=== PATIENT | male | born 1955 | race Hispanic/Latino ===

== ENCOUNTER 2018-07-25 09:49 | Inpatient (IN) | payer OTHER ==
[2018-07-25 09:51] VITALS: BMI 22.6
[2018-07-25] MEDS ORDERED: Sodium Chloride 0.9% 500 ML IV STA (10:55)
[2018-07-25] MEDS ORDERED: Moxifloxacin IV 400mg/250ml NS 400 MG/250 ML BAG IV STA (10:55)
[2018-07-25] MEDS ORDERED: Moxifloxacin IV 400mg/250ml NS 400 MG/250 ML BAG IVPB ONE (12:11)
[2018-07-25] MEDS ORDERED: Sodium Chloride 0.9% 1,000 ML ONE (12:11)
--- NOTE | 2018-07-25 13:01 | C.PDOC ---
History Of Present Illness 63 years old male is sent to ED for evaluation of pneumonia. Patient states he was seen by David Helms (PMD) which sent him to Dr. malik bower for evaluation and CT Scans. Patient states he was told he has pneumonia and something suspicious for cancer, so Dr. Lancaster sent patient to ER today. Patient has no complaints at this time. Chief Complaint (Nursing): Medical Clearance History Per: Patient History/Exam Limitations: no limitations Onset/Duration Of Symptoms: Hrs Current Symptoms Are (Timing): Still Present Recent travel outside of the [place]: No Past Medical History Reviewed: Historical Data, Nursing Documentation, Vital Signs Vital Signs: Last Vital Signs Temp 97.6 F 07/25/18 09:57 Pulse 69 07/25/18 09:57 Resp 18 07/25/18 09:57 BP 131/67 07/25/18 09:57 Pulse Ox 96 07/25/18 09:57 - Medical History PMH: Bipolar Disorder Surgical History: No Surg Hx Family History: States: Unknown Family Hx - Social History Hx Alcohol Use: No Hx Substance Use: No - Immunization History Hx Tetanus Toxoid Vaccination: No Hx Influenza Vaccination: Yes Hx Pneumococcal Vaccination: No Review Of Systems Constitutional: Negative for: Fever, Chills Gastrointestinal: Negative for: Nausea, Vomiting, Abdominal Pain, Diarrhea Skin: Negative for: Rash Neurological: Negative for: Weakness, Numbness Physical Exam - Physical Exam Appears: Non-toxic, No Acute Distress Skin: Normal Color, Warm, Dry, No Rash Head: Atraumatic, Normacephalic Eye(s): bilateral: Normal Inspection, PERRL, EOMI Oral Mucosa: Moist Neck: Normal ROM, Supple Chest: Symmetrical, No Tenderness Cardiovascular: Rhythm Regular, No Murmur Respiratory: Normal Breath Sounds, No Rales, No Rhonchi, No Wheezing Gastrointestinal/Abdominal: Soft, No Tenderness Extremity: Normal ROM Extremity: Bilateral: Atraumatic, Normal Color And Temperature, Normal ROM Pulses: Left Radial: Normal, Right Radial: Normal Neurological/Psych: Oriented x3, Normal Speech Gait: Steady ED Course And Treatment O2 Sat by Pulse Oximetry: 96 (RA) Pulse Ox Interpretation: Normal Progress Note: Administered Moxiflocacin, IV Fluids, and O2 via nasal cannula. Ordered blood work and blood culture. Spoke with Dr. Hernandez which requested patient to be started on antibiotics and IV. Patient will be admitted to his service with Dr. Bower's consult. Disposition - Disposition Disposition: HOSPITALIZED Disposition Time: 12:29 Condition: STABLE Forms: [facility] (Maltese) - Clinical Impression Clinical Impression: Pneumonia, Pulmonary mass - PA / BEAM WARPER / Resident Statement MD/DO has reviewed & agrees with the documentation as recorded. - Scribe Statement The provider has reviewed the documentation as recorded by the Caitlinibe Veronika Goss All medical record entries made by the Scribe were at my direction and personally dictated by me. I have reviewed the chart and agree that the record accurately reflects my personal performance of the history, physical exam, medical decision making, and the department course for this patient. I have also personally directed, reviewed, and agree with the discharge instructions and disposition. Decision To Admit - Pt Status Changed To: Hospital Disposition Of: Inpatient - Admit Certification Admit to Inpatient:: After my assessment, the patient will require hospitalization for at least two midnights. This is because of the severity of symptoms shown, intensity of services needed, and/or the medical risk in this patient being treated as an outpatient. - InPatient: Physician Admission Certification: I certify that this patient requires 2 or more midnights of care for the following reason:: nends a work up for pulmonary mass plus pneumonia - . Bed Request Type: Regular Admitting Physician: Jose Manuel Hernandez Patient Diagnosis: Pneumonia, Pulmonary mass
--- NOTE | 2018-07-25 14:11 | RAD ---
HISTORY: pneumonia, pulmonary mass COMPARISON: None available. TECHNIQUE: Chest PA and lateral FINDINGS: LUNGS: Hyperinflation may be seen in setting of COPD. Increased lucencies especially within the bilateral upper lung fortune compatible with underlying emphysema. Biapical pleural thickening. Mild patchy right middle lobe atelectasis or infiltrate. Please note that chest x-ray has limited sensitivity for the detection of pulmonary masses. PLEURA: No significant pleural effusion identified. No definite pneumothorax . CARDIOVASCULAR: Heart size appears within normal limits. Atherosclerotic calcification present. OSSEOUS STRUCTURES: Mild degenerative changes. VISUALIZED UPPER ABDOMEN: Unremarkable. OTHER FINDINGS: None. IMPRESSION: Hyperinflation/COPD. Biapical pleural thickening. Mild patchy right middle lobe atelectasis or infiltrate.
[2018-07-25 14:15] LABS: BASO # 0.1 K/uL (0.0-0.2); BASO % 0.7 % (0.0-2.0); EOS # 0.1 K/uL (0.0-0.7); EOS % 0.9 % (0.0-4.0); HEMOGLOBIN 14.6 g/dL (12.0-18.0); LYMPH # 1.7 K/uL (1.0-4.3); LYMPH % 22.2 % (20.0-40.0); MEAN CELL VOLUME 90.5 fL (80.0-94.0); MEAN CORPUSCULAR HEMOGLOBIN 30.9 pg (27.0-31.0); MEAN CORPUSCULAR HGB CONC 34.2 g/dL (33.0-37.0); MEAN PLATELET VOLUME 9.2 fL (7.2-11.7); MONO # 0.8 K/uL (0.0-0.8); MONO % 10.1 % (0.0-10.0); NEUT % 66.1 % (50.0-75.0); RBC 4.72 Mil/uL (4.40-5.90); RED CELL DISTRIBUTION WIDTH 15.2 % (11.5-14.5); WHITE BLOOD COUNT 7.6 K/uL (4.8-10.8)
[2018-07-25 14:23] LABS: ALB/GLOB RATIO 1.6 (1.0-2.1); ALBUMIN 4.4 g/dL (3.5-5.0); BLOOD UREA NITROGEN 13 mg/dL (9-20); CALCIUM 9.5 mg/dl (8.6-10.4); GFR NON-AFRICAN AMERICAN > 60
[2018-07-25 14:24] LABS: ALT/SGPT 32 U/L (21-72); AST/SGOT 30 U/L (17-59)
--- NOTE | 2018-07-25 15:46 | CP.PCM.CON ---
<Ruddy Morton - Last Filed: 07/25/18 17:11> History of Present Illness - History of Present Illness History of Present Illness: PGY2 Pulmonology Consult Note for Dr. Nunes Reason for consult: Pneumonia vs pulmonary mass 63 year old Caucasion male with PMH of COPD and bipolar disorder presents to ED with persistent cough starting over 1 month ago. The cough is non-productive and non-bloody. Patient states he saw his PMD (Dr. Hernandez) in May who treated him for pneumonia with an antibiotic he does not recall, as well as Advair and Montelukast which were minimally helpful to his cough. He also received two chest X-rays and a chest CT over the course of the last few weeks with finding of possible lung mass. He is a current smoker, 2 ppd for 42 years. Patient denies fever, chills, sweats, nausea, vomiting, chest pain, palpitations, SOB, dyspnea on exertion. Patient received 1 dose of of Avelox on arrival at ED for suspected atypical pneumonia. Patient afebrile, WBC 7.6. PMH: COPD, bipolar disorder. PSH: denies Allergies: NKDA SocialHx: lives with ; smokes 2 ppd cigarettes for 42 years; denies alcohol and illicit drug use Review of Systems - Review of Systems All systems: reviewed and no additional remarkable complaints except (as per HPI) Past Patient History - Past Social History Smoking Status: Heavy Smoker > 10 Cigarettes Daily - CARDIAC Hx Hypertension: No - PULMONARY Hx Tuberculosis: No - NEUROLOGICAL Hx Seizures: No - HEMATOLOGICAL/ONCOLOGICAL Hx Human Immunodeficiency Virus (HIV): No - GENITOURINARY/GYNECOLOGICAL Hx Sexually Transmitted Disorders: No - PSYCHIATRIC Hx Bipolar Disorder: Yes Hx Substance Use: No - SURGICAL HISTORY Hx Surgeries: No - ANESTHESIA Hx Anesthesia: No Meds Allergies/Adverse Reactions: Allergies Allergy/AdvReac Type Severity Reaction Status Date / Time No Known Allergies Allergy Verified 07/25/18 10:02 - Medications Medications: Current Medications Albuterol/Ipratropium (Duoneb 3 Mg/0.5 Mg (3 Ml) Ud) 3 ml INH RQ6 KIANNA Sodium Chloride (Sodium Chloride 0.9%) 500 mls @ 1,000 mls/hr IV .Q30M STA Last Admin: 07/25/18 13:38 Dose: 1,000 mls/hr Azithromycin 500 mg/ Sodium (Chloride) 250 mls @ 250 mls/hr IVPB Q24H KIANNA; Protocol Ceftriaxone Sodium (Rocephin Iv 1 Gm Duplex) 50 mls @ 100 mls/hr IVPB Q24H KIANNA; Protocol Methylprednisolone (Solu-Medrol) 40 mg IVP Q8H KIANNA Physical Exam - Constitutional Appears: Non-toxic, No Acute Distress - Head Exam Head Exam: ATRAUMATIC, NORMOCEPHALIC - Eye Exam Eye Exam: Normal appearance - ENT Exam ENT Exam: Mucous Membranes Moist - Respiratory Exam Respiratory Exam: Clear to Auscultation Bilateral, NORMAL BREATHING PATTERN. absent: Accessory Muscle Use, Rales, Rhonchi, Wheezes, Respiratory Distress - Cardiovascular Exam Cardiovascular Exam: REGULAR RHYTHM, +S1, +S2 - GI/Abdominal Exam GI & Abdominal Exam: Soft. absent: Distended, Firm, Guarding, Rigid - Extremities Exam Extremities exam: Positive for: pedal pulses present. Negative for: calf tenderness, pedal edema - Neurological Exam Neurological exam: Alert, Oriented x3 - Psychiatric Exam Psychiatric exam: Normal Affect, Normal Mood - Skin Skin Exam: Dry, Warm Results - Vital Signs Recent Vital Signs: Last Vital Signs Temp 97.8 F 07/25/18 13:44 Pulse 64 07/25/18 13:44 Resp 16 07/25/18 13:44 BP 125/73 07/25/18 13:44 Pulse Ox 97 07/25/18 13:44 - Labs Result Diagrams: 07/25/18 14:07 07/25/18 14:07 Labs: Laboratory Results - last 24 hr 07/25/18 07/25/18 14:07 14:07 WBC 7.6 RBC 4.72 Hgb 14.6 Hct 42.7 MCV 90.5 MCH 30.9 MCHC 34.2 RDW 15.2 H Plt Count 214 MPV 9.2 Neut % (Auto) 66.1 Lymph % (Auto) 22.2 [place] % (Auto) 10.1 H Eos % (Auto) 0.9 Baso % (Auto) 0.7 Neut # (Auto) 5.0 Lymph # (Auto) 1.7 [place] # (Auto) 0.8 Eos # (Auto) 0.1 Baso # (Auto) 0.1 Sodium 138 Potassium 4.5 Chloride 101 Carbon Dioxide 28 Anion Gap 14 BUN 13 Creatinine 0.8 Est GFR ( Amer) > 60 Est GFR (Non-Af Amer) > 60 Random Glucose 93 Calcium 9.5 Total Bilirubin 0.4 AST 30 ALT 32 Alkaline Phosphatase 118 Total Protein 7.1 Albumin 4.4 Globulin 2.8 Albumin/Globulin Ratio 1.6 Assessment & Plan (1) Pneumonia Assessment and Plan: Given one dose of Moxifloxacin in ED Started on Rocephin and Azithromycin Started on Bronchodilators Started on SoluMedrol q8h Follow up cultures Follow up Chest CT oxygen NC prn Status: Acute (2) Pulmonary mass Assessment and Plan: Patient had suspected pulmonary mass on outpatient CT. Repeat chest CT pending Brochoscopy scheduled for 11am tomorrow morning, 07/26/17. Status: Acute <Sathish Nunes - Last Filed: 07/26/18 12:04> Meds - Medications Medications: Current Medications Albuterol/Ipratropium (Duoneb 3 Mg/0.5 Mg (3 Ml) Ud) 3 ml INH RQ8 KIANNA Last Admin: 07/26/18 07:35 Dose: 3 ml Fluticasone/Vilanterol (Breo Ellipta 200-25 Mcg Inh) 1 puff INH RQD KIANNA Last Admin: 07/26/18 07:35 Dose: 1 puff Sodium Chloride (Sodium Chloride 0.9%) 500 mls @ 1,000 mls/hr IV .Q30M STA Last Admin: 07/25/18 13:38 Dose: 1,000 mls/hr Azithromycin 500 mg/ Sodium (Chloride) 250 mls @ 250 mls/hr IVPB Q24H KIANNA; Pro tocol Last Admin: 07/26/18 09:00 Dose: 250 mls/hr Ceftriaxone Sodium (Rocephin Iv 1 Gm Duplex) 50 mls @ 100 mls/hr IVPB Q24H KIANNA; Protocol Last Admin: 07/26/18 11:27 Dose: 100 mls/hr Methylprednisolone (Solu-Medrol) 40 mg IVP Q8H KIANNA Last Admin: 07/26/18 08:10 Dose: 40 mg Pneumococcal Polyvalent Vaccine (Pneumovax 23 Vaccine) 0.5 ml IM .ONCE ONE Stop: 07/27/18 16:05 Results - Vital Signs Recent Vital Signs: Last Vital Signs Temp 98.1 F 01/03/19 07:00 Pulse 93 H 07/26/18 07:00 Resp 20 07/26/18 07:00 BP 137/75 07/26/18 07:00 Pulse Ox 98 07/26/18 07:00 - Labs Result Diagrams: 07/25/18 14:07 07/25/18 14:07 Labs: Laboratory Results - last 24 hr 07/25/18 07/25/18 07/26/18 14:07 14:07 07:36 WBC 7.6 RBC 4.72 Hgb 14.6 Hct 42.7 MCV 90.5 MCH 30.9 MCHC 34.2 RDW 15.2 H Plt Count 214 MPV 9.2 Neut % (Auto) 66.1 Lymph % (Auto) 22.2 [place] % (Auto) 10.1 H Eos % (Auto) 0.9 Baso % (Auto) 0.7 Neut # (Auto) 5.0 Lymph # (Auto) 1.7 [place] # (Auto) 0.8 Eos # (Auto) 0.1 Baso # (Auto) 0.1 PT 12.1 INR 1.1 APTT 36 H Sodium 138 Potassium 4.5 Chloride 101 Carbon Dioxide 28 Anion Gap 14 BUN 13 Creatinine 0.8 Est GFR ( Amer) > 60 Est GFR (Non-Af Amer) > 60 Random Glucose 93 Calcium 9.5 Total Bilirubin 0.4 AST 30 ALT 32 Alkaline Phosphatase 118 Total Protein 7.1 Albumin 4.4 Globulin 2.8 Albumin/Globulin Ratio 1.6 Attending/Attestation - Attestation I have personally seen and examined this patient.: Yes I have fully participated in the care of the patient.: Yes I have reviewed all pertinent clinical information: Yes Notes (Text): patient seen and examined CAT scan of the chest discussed with 2 radiologist and no obvious mass or endobronchial lesion seen Continue antibiotics Continue nebulizer treatment
[2018-07-25] MEDS: MethylPREDNISolone 40 mg Vial IVP SCH (15:50)
[2018-07-25] MEDS ORDERED: Iohexol 300 100 ML IJ ONE (17:00)
[2018-07-25] MEDS ORDERED: Albuterol-Ipratrop 3 mg / 0.5 (3 ml) UD INH SCH (20:00)
[2018-07-26] MEDS ORDERED: Albuterol-Ipratrop 3 mg / 0.5 (3 ml) UD INH SCH
[2018-07-26] MEDS: MethylPREDNISolone 40 mg Vial IVP SCH ×2 (00:25→08:10)
--- NOTE | 2018-07-26 01:35 | HP ---
HISTORY OF PRESENT ILLNESS: A 63-year-old gentleman who was brought in with a productive cough, going on for more than two weeks. This did not get better. The patient has a longstanding history of COPD. About a year ago, his chest x-ray was negative. Two weeks ago, he was seen in the office with a cough and x-ray had shown right lower lobe pneumonia. The patient was given antibiotics and was advised to follow up with Dr. Nunes of Pulmonary. The patient was given antibiotics; however, he continued to have a cough and a repeat chest x-ray had shown some improvement, but no clearance totally. CT was done which was suspicious for right bronchial lesion. The patient was seen again by Dr. Nunes and some antibiotics were given which did not get better, so came to the emergency room and has been admitted. PERSONAL HISTORY: One and half day pack per day smoker for more than 40 years. No ETOH abuse. No drug abuse. ALLERGIES: DENIES ANY ALLERGIES. SOCIAL HISTORY: Walks one mile per day. FAMILY HISTORY: Negative family history for premature coronary artery disease. MEDICATIONS: At home include Advair, Levaquin, Singulair, and cough medication. The patient also has a history of depression, under the care of Dr. Mccord. REVIEW OF SYSTEMS: CONSTITUTIONAL: Negative for fever and generalized weakness, but recent weight loss was noted, 3 to 4 pounds. EYES: No pallor, no redness, and no visual disturbances. EARS: Negative for hearing loss. THROAT: Negative for sore throat. NECK: No swollen glands. PULMONARY: Shortness of breath and nonproductive cough for the past few days. CARDIAC: Dyspnea on exertion is noted. He had a negative stress test about a year ago at [facility]. No edema. GASTROINTESTINAL: Negative for hematemesis or melena. No diarrhea. NEUROLOGIC: Negative for headaches, dizziness, TIA, or CVAs. MUSCULOSKELETAL: Negative for joint pains or back pains. GENITOURINARY: Negative for frequency, hematuria, or incontinence. PSYCHIATRIC: Positive for depression. EXTREMITIES: Negative for pedal edema. PAST MEDICAL HISTORY: History of depression. SURGICAL HISTORY: Negative. PHYSICAL EXAMINATION: GENERAL: Shows middle-aged gentleman, in no acute distress. VITAL SIGNS: Blood pressure is 128/70, heart rate of 74, respiratory rate 20, and temperature of 98.8. HEENT: Head is normocephalic. Eyes: No pallor and no icterus. NECK: Supple. LUNGS: Show decreased air entry at the right middle lower lobe. CARDIAC: PMI is normal. S1 and S2 normal. Soft mid systolic murmur, grade 1/6 to 2/6 in mitral area. ABDOMEN: Soft and nontender. EXTREMITIES: No cyanosis, clubbing, or edema. Distal pulses are intact. LABORATORY DATA: EKG, x-rays are pending. ASSESSMENT: A 63-year-old gentleman with history of pneumonitis, not clearing it up for more two weeks of the p.o. antibiotics. Abnormal CAT scan. PLAN: Pulmonary followup with Dr. Nunes, may need a bronchoscopy. Care of plan was explained to the patient. Jose Manuel Hernandez MD
[2018-07-26] MEDS ORDERED: Fluticasone-Vilanterol 200/25mcg Diskus INH SCH (08:00)
[2018-07-26 08:10] LABS: INR 1.1; PROTHROMBIN TIME 12.1 SECONDS (9.7-12.2)
[2018-07-26] MEDS ORDERED: Azithromycin 500 MG in Sodium Chloride 0.9% 250 ML IVPB SCH (10:00)
[2018-07-26] MEDS ORDERED: cefTRIAXone IV 1 gm in Dextros 50 ML IVPB SCH (11:00)
--- NOTE | 2018-07-26 11:11 | CT ---
Date of service: 07/25/2018 PROCEDURE: CT Chest with contrast HISTORY: r/o pneumonia vs mass COMPARISON: Chest radiographs 01/02/2019. TECHNIQUE: Contiguous axial images were obtained through the chest with intravenous contrast enhancement. Sagittal and coronal reconstructions were performed. IV contrast: Omnipaque 300, 100 cc. Radiation dose: Total exam DLP = 339.12 mGy-cm. This CT exam was performed using one or more of the following dose reduction techniques: Automated exposure control, adjustment of the mA and/or kV according to patient size, and/or use of iterative reconstruction technique. FINDINGS: LUNGS: There is dumbbell-shaped irregular mass identified posterior to the mid to distal portion right mainstem bronchus in the superior segment right lower lobe measuring 1.1 x 1.7 cm suspicious for a malignancy (image 55 series 3). Trace calcifications seen the periphery and there is a limited possibility this is post granulomatous rather than neoplastic. However, additional abnormal soft tissue surrounds the distal main right bronchus as well as proximal right lower lobe bronchus suspicious for additional neoplasm or lymphadenopathy. Due to its crescentic shape, is somewhat more difficult to measure but appears to measure approximately 2.7 x 1.6 cm. This likely encases are simply narrows segmental branches of airways to the right lower lobe resulting in postobstructive atelectasis. Fluid or other material is seen within the lumen of these airways. Trace ground-glass changes seen at the medial bilateral upper lobes with a small 4 mm nodule identified at the left lower lobe in image 67, noncalcified. No definite additional pulmonary lesions are identified bilaterally. Central airways are otherwise clear and centrilobular emphysematous change are identified primarily affecting the bilateral upper lobes compatible with COPD. MEDIASTINUM: Unremarkable thoracic aorta. No aneurysm or dissection. Normal sized heart. Main pulmonary artery unremarkable. No vascular congestion. No lymphadenopathy. Atherosclerotic coronary artery changes are identified. Calcific atherosclerotic changes are seen related to the thoracic aorta. PLEURA: No pleural fluid. No pneumothorax. BONES: No fracture. No destructive lesion. UPPER ABDOMEN: Grossly unremarkable. OTHER FINDINGS: None. IMPRESSION: 1. Superior segment right lower lobe changes approximating the periphery of the mid to distal right main bronchus and proximal right lower lobe bronchus suspicious for malignancy. Post structure atelectasis is minimal affecting the right lower lobe. Please see discussion above. Tissue diagnosis is advised. If tissue diagnosis is not possible then follow-up PET-CT recommended. 2. 5 mm non-specific nodule superior segment left lower lobe. No gross left hilar or mediastinal lymphadenopathy exclusive of right hilum. 3. COPD as discussed above.
[2018-07-26 12:42] VITALS: BP 137/75; PULSE 93; RESP 20; TEMP 98.1
--- NOTE | 2018-07-26 14:49 | CARD ---
APPROVED REPORT Date of service: 07/26/2018 EKG Measurement Heart [id number] <Conclusion> Normal sinus rhythm Normal ECG
--- NOTE | 2018-07-26 18:29 | CP.PCM.PN ---
Subjective - Date & Time of Evaluation Date of Evaluation: 07/26/18 Time of Evaluation: 10:20 - Subjective Subjective: Patient seen and examined at bedside this AM. Patient resting comfortably, afebrile, satting 98% on RA. Cough has improved with breathing treatments. Exam: Lungs - diminished breath sounds bilaterally, no wheezes, rales or rhonchi. A&P: 1. Pulmonary Mass - 07/25/18: CT showed 1.1x1.7cm dumbbell-shaped mass at the mid to distal portion of right mainstem bronchus in superior segment of right lower lobe. The CT is different previous study done as outpatient. Discussed with patient today, will follow up outpatient with PET scan. 2. COPD - continue Duoneb and Breo Elipta treatments 3. Pneumonia - Patient afebrile, WBC 7.6 yesterday. - 07/25/18 - received 1 dose Avelox on arrival - d/c Rocephin and azithromycin Objective - Vital Signs/Intake and Output Vital Signs (last 24 hours): Temp Pulse Resp BP Pulse Ox 98.1 F 93 H 20 137/75 98 07/26/18 07:00 07/26/18 07:00 07/26/18 07:00 07/26/18 07:00 07/26/18 07:00 Intake and Output: 07/26/18 07/26/18 06:59 18:59 Intake Total 300 650 Output Total 1150 Balance -850 650 - Labs Labs: 07/25/18 14:07 07/25/18 14:07 PT 12.1 SECONDS (9.7-12.2) 07/26/18 07:36 INR 1.1 07/26/18 07:36 APTT 36 SECONDS (21-34) H 07/26/18 07:36
--- NOTE | 2018-07-26 21:07 | DS ---
HISTORY OF PRESENT ILLNESS: This is a 63-year-old gentleman, came with productive cough, possibly had a pneumonia. CAT scan had shown a possible lesion in the right main bronchus. Repeat CAT scan did not show the same. The patient was seen and evaluated by Dr. Nunes. At this point, we will treat him as an antibiotic and repeat PET scan in 2 weeks' time and subsequently may need a bronchoscopy. FINAL DIAGNOSES: 1. Atypical pneumonia, probably mycoplasma. 2. History of depression, being followed by Dr. Mccord. PLAN: Prescription of Levaquin 250 mg p.o. once a day was given to the pharmacy. I will see him back in 2 weeks' time and will follow up with Dr. Nunes for PET scan. Jose Manuel Hernandez MD
[2018-07-27] MEDS ORDERED: Pneumococcal 23-Valent Vaccine IM ONE (16:04)
[2018-07-27 18:26] VITALS: O2SAT 96
== END 2018-07-26 13:58 | disposition home or self-care (01) | DRG 194 ==
LOC: C.ER 09:49 → C.9E 12:27 → C.3T 12:55
PROVIDERS: ADMIT Internal Medicine Cardiovascular Disease; ATTEND Internal Medicine Cardiovascular Disease
DX: J15.7 Pneumonia due to Mycoplasma pneumoniae (principal); J44.0 Chronic obstructive pulmonary disease with (acute) lower respiratory infection; F32.9 Major depressive disorder, single episode, unspecified; F31.9 Bipolar disorder, unspecified; F17.210 Nicotine dependence, cigarettes, uncomplicated

== ENCOUNTER 2018-08-27 12:47 | Observation (INO) | payer OTHER ==
[2018-08-27 12:47] VITALS: BMI 22.6
--- NOTE | 2018-08-27 14:32 | C.PDOC ---
History Of Present Illness 63 y/o male with history of Pneumonia, Pulmonary Mass, and COPD was referred to the ED by Dr. Nunes due to history of hemoptysis for 1+ week. Patient states that he initially had a productive cough that has become progressively worse with now episodes of hemoptysis. He denies any fever, chills, headache, chest pain, SOB, N/V/D, and abdominal pain. Time Seen by Provider: 08/27/18 14:00 Chief Complaint (Nursing): Medical Clearance History Per: Patient History/Exam Limitations: no limitations Onset/Duration Of Symptoms: Persistent Current Symptoms Are (Timing): Still Present Past Medical History Reviewed: Historical Data, Nursing Documentation, Vital Signs Vital Signs: Last Vital Signs Temp 98.3 F 08/27/18 13:31 Pulse 61 08/27/18 13:31 Resp 18 08/27/18 13:31 BP 132/70 08/27/18 13:31 Pulse Ox 98 08/27/18 13:31 - Medical History PMH: Bipolar Disorder, Pneumonia Denies: Diabetes, Hepatitis, HIV, HTN, Seizures, Sexually Transmitted Disease Family History: States: Unknown Family Hx - Social History Hx Alcohol Use: No Hx Substance Use: No - Immunization History Hx Tetanus Toxoid Vaccination: No Hx Influenza Vaccination: Yes Hx Pneumococcal Vaccination: No Review Of Systems Constitutional: Negative for: Fever, Chills Cardiovascular: Negative for: Chest Pain, Palpitations, Light Headedness Respiratory: Positive for: Hemoptysis Gastrointestinal: Negative for: Nausea, Vomiting, Abdominal Pain, Diarrhea Musculoskeletal: Negative for: Neck Pain, Back Pain Skin: Negative for: Rash Neurological: Positive for: Dizziness. Negative for: Headache Physical Exam - Physical Exam Appears: Well, Non-toxic, No Acute Distress Skin: Normal Color, Warm, Dry Head: Atraumatic, Normacephalic, No Tenderness Eye(s): bilateral: Normal Inspection, PERRL Ear(s): Bilateral: Normal Nose: Flaring Oral Mucosa: Moist Throat: No Erythema Neck: Normal ROM, Supple Lymphatic: No Adenopathy Chest: Symmetrical Cardiovascular: Rhythm Regular Respiratory: No Accessory Muscle Use, No Rales, No Wheezing Gastrointestinal/Abdominal: Bowel Sounds, Soft, No Tenderness Neurological/Psych: Oriented x3, Normal Speech, Normal Cognition, Normal Sensation ED Course And Treatment - Laboratory Results Result Diagrams: 08/27/18 14:36 08/27/18 14:36 O2 Sat by Pulse Oximetry: 98 - Other Rad chest xray X-Ray: Viewed By Me, Read By Radiologist Interpretation: Accession No. : [id number]. Patient Name / ID : LOLI GORDON / [id number]. Exam Date : 08/27/2018 14:29:09 ( Approved ). Study Comment : Sex / Age : M / 63Y. Creator : Catherine Esteves MD. Dictator : Catherine Esteves MD. Python Web Developer : Sample Checker : Catherine Esteves MD. Approver2 : Report Date : 08/27/2018 14:57:31. My Comment : . HISTORY: SOB. COMPARISON: Chest x-ray performed 07/25/18. TECHNIQUE: Chest PA and lateral. FINDINGS: LUNGS: Hyperinflation may be seen in the setting of COPD. Increased lucencies is partially within the bilateral upper lung fortune compatible with underlying emphysema. Biapical pleural thickening. Subtle patchy atelectasis re-identified in the right middle lobe. Please note that chest x-ray has limited sensitivity for the detection of pulmonary masses. PLEURA: No significant pleural effusion identified. No definite pneumothorax . CARDIOVASCULAR: Heart size appears within normal limits. Atherosclerotic calcifications of the aorta. OSSEOUS STRUCTURES: Degenerative changes. VISUALIZED UPPER ABDOMEN: Unremarkable. OTHER FINDINGS: None. IMPRESSION: No significant interval change. Hyperinflation/COPD. Biapical pleural thickening. Mild patchy right middle lobe atelectasis re- identified. Medical Decision Making Medical Decision Making: A/P: History of Pneumonia with Hemoptysis - D/W with Dr. Nunes and started patient on a dose of Rocephin 1g and Azithromycin 500mg now - patient to be admitted under Dr. Martin - patient is aware of plan and verbalizes understanding Disposition Discussed With Dr.: Adam Martin (spoke to Dr. Nunes) Comment: accepted admission at 2:33pm Doctor Will See Patient In The: Hospital Counseled Patient/Family Regarding: Studies Performed, Diagnosis, Need For Followup - Disposition Disposition: HOSPITALIZED Disposition Time: 14:33 Condition: STABLE - Clinical Impression Clinical Impression: Pneumonia - PA / DIRECTOR OF EDUCATION AND TRAINING / Resident Statement / has reviewed & agrees with the documentation as recorded. Decision To Admit - Pt Status Changed To: Hospital Disposition Of: Inpatient - Admit Certification Admit to Inpatient:: After my assessment, the patient will require hospitalization for at least two midnights. This is because of the severity of symptoms shown, intensity of services needed, and/or the medical risk in this patient being treated as an outpatient. - InPatient: Physician Admission Certification: I certify that this patient requires 2 or more midnights of care for the following reason:: pneumonia; hemoptysis - . Bed Request Type: Regular Admitting Physician: Adam Martin Patient Diagnosis: Pneumonia
[2018-08-27 14:40] LABS: BASO % 0.6 % (0.0-2.0); EOS % 0.4 % (0.0-4.0); LYMPH # 1.8 K/uL (1.0-4.3); LYMPH % 24.2 % (20.0-40.0); MEAN CORPUSCULAR HEMOGLOBIN 30.7 pg (27.0-31.0); MEAN CORPUSCULAR HGB CONC 33.7 g/dL (33.0-37.0); MEAN PLATELET VOLUME 9.1 fL (7.2-11.7); MONO # 0.5 K/uL (0.0-0.8); MONO % 6.3 % (0.0-10.0); NEUT # 5.1 K/uL (1.8-7.0); NEUT % 68.5 % (50.0-75.0); RBC 4.55 Mil/uL (4.40-5.90); RED CELL DISTRIBUTION WIDTH 15.2 % (11.5-14.5); WHITE BLOOD COUNT 7.4 K/uL (4.8-10.8)
[2018-08-27 14:53] LABS: ALB/GLOB RATIO 1.7 (1.0-2.1); ALBUMIN 4.2 g/dL (3.5-5.0); ALT/SGPT 25 U/L (21-72); AST/SGOT 23 U/L (17-59); BLOOD UREA NITROGEN 18 mg/dL (9-20); CALCIUM 8.4 mg/dl (8.6-10.4); GFR NON-AFRICAN AMERICAN > 60
--- NOTE | 2018-08-27 15:01 | RAD ---
HISTORY: SOB COMPARISON: Chest x-ray performed 07/25/18 TECHNIQUE: Chest PA and lateral FINDINGS: LUNGS: Hyperinflation may be seen in the setting of COPD. Increased lucencies is partially within the bilateral upper lung fortune compatible with underlying emphysema. Biapical pleural thickening. Subtle patchy atelectasis re-identified in the right middle lobe. Please note that chest x-ray has limited sensitivity for the detection of pulmonary masses. PLEURA: No significant pleural effusion identified. No definite pneumothorax . CARDIOVASCULAR: Heart size appears within normal limits. Atherosclerotic calcifications of the aorta. OSSEOUS STRUCTURES: Degenerative changes. VISUALIZED UPPER ABDOMEN: Unremarkable. OTHER FINDINGS: None. IMPRESSION: No significant interval change. Hyperinflation/COPD. Biapical pleural thickening. Mild patchy right middle lobe atelectasis re-identified.
[2018-08-27] MEDS ORDERED: cefTRIAXone 1 gm in Water For Injection 2.1 ML IM ONE (15:12)
[2018-08-27] MEDS ORDERED: cefTRIAXone IV 1 gm in Dextros 50 ML IVPB SCH (16:00)
[2018-08-27 16:25] VITALS: RESP 20
[2018-08-27] MEDS ORDERED: Divalproex 500 mg ER Tab PO SCH (18:00)
[2018-08-27] MEDS ORDERED: PAXIL PO SCH (18:00)
--- NOTE | 2018-08-27 18:14 | CP.PCM.CON ---
History of Present Illness - History of Present Illness History of Present Illness: Reason for consultation: Hemoptysis 63-year-old male with history of COPD, pneumonia who was admitted for hemoptysis. Patient initially had productive cough with clear phlegm and later noticed blood. Also complaining of dyspnea on exertion but denies fever chills, denies chest pain Review of Systems - Review of Systems All systems: reviewed and no additional remarkable complaints except (Hemoptysis and shortness of breath) Past Patient History - Past Medical History & Family History Past Medical History?: Yes - Past Social History Smoking Status: Heavy Smoker > 10 Cigarettes Daily - CARDIAC Hx Hypertension: No - PULMONARY Hx Pneumonia: Yes - NEUROLOGICAL Hx Seizures: No - HEENT Hx HEENT Problems: No - RENAL Hx Chronic Kidney Disease: No - ENDOCRINE/METABOLIC Hx Endocrine Disorders: No - HEMATOLOGICAL/ONCOLOGICAL Hx Human Immunodeficiency Virus (HIV): No - INTEGUMENTARY Hx Dermatological Problems: No - MUSCULOSKELETAL/RHEUMATOLOGICAL Hx Musculoskeletal Disorders: No Hx Falls: No - GASTROINTESTINAL Hx Gastrointestinal Disorders: No - GENITOURINARY/GYNECOLOGICAL Hx Sexually Transmitted Disorders: No - PSYCHIATRIC Hx Bipolar Disorder: Yes Hx Substance Use: No - SURGICAL HISTORY Hx Surgeries: No - ANESTHESIA Hx Anesthesia: No Meds Allergies/Adverse Reactions: Allergies Allergy/AdvReac Type Severity Reaction Status Date / Time No Known Allergies Allergy Verified 07/25/18 10:02 - Medications Medications: Current Medications Acetaminophen (Tylenol 325mg Tab) 650 mg PO Q6 PRN PRN Reason: Fever >100.4 F Albuterol/Ipratropium (Duoneb 3 Mg/0.5 Mg (3 Ml) Ud) 3 ml INH RQ6 [facility] Divalproex Sodium (Depakote Er) 500 mg PO TID [facility] Enoxaparin Sodium (Lovenox) 40 mg SC DAILY [facility] Guaifenesin (Mucinex La) 600 mg PO BID [facility] Ceftriaxone Sodium (Rocephin Iv 1 Gm Duplex) 50 mls @ 100 mls/hr IVPB DAILY [facility]; Protocol Last Admin: 08/27/18 15:25 Dose: 100 mls/hr Ceftriaxone Sodium 1 gm/ (Sodium Chloride) 100 mls @ 100 mls/hr IVPB DAILY [facility]; Protocol Azithromycin 500 mg/ Sodium (Chloride) 250 mls @ 250 mls/hr IVPB DAILY [facility]; Protocol Paroxetine HCl (Paxil) 10 mg PO DAILY [facility] Physical Exam - Head Exam Head Exam: ATRAUMATIC, NORMOCEPHALIC - ENT Exam ENT Exam: Mucous Membranes Moist - Neck Exam Neck exam: Positive for: Normal Inspection - Respiratory Exam Respiratory Exam: Clear to Auscultation Bilateral - Cardiovascular Exam Cardiovascular Exam: REGULAR RHYTHM Results - Vital Signs Recent Vital Signs: Last Vital Signs Temp 97.9 F 08/27/18 16:23 Pulse 64 08/27/18 16:23 Resp 20 08/27/18 16:23 BP 117/69 08/27/18 16:23 Pulse Ox 97 08/27/18 16:23 - Labs Result Diagrams: 08/27/18 14:36 08/27/18 14:36 Labs: Laboratory Results - last 24 hr 08/27/18 08/27/18 14:36 14:36 WBC 7.4 RBC 4.55 Hgb 14.0 Hct 41.4 MCV 91.0 MCH 30.7 MCHC 33.7 RDW 15.2 H Plt Count 170 MPV 9.1 Neut % (Auto) 68.5 Lymph % (Auto) 24.2 Dixon % (Auto) 6.3 Eos % (Auto) 0.4 Baso % (Auto) 0.6 Neut # (Auto) 5.1 Lymph # (Auto) 1.8 Dixon # (Auto) 0.5 Eos # (Auto) 0.0 Baso # (Auto) 0.0 Sodium 135 Potassium 4.4 Chloride 101 Carbon Dioxide 27 Anion Gap 12 BUN 18 Creatinine 0.8 Est GFR ( Amer) > 60 Est GFR (Non-Af Amer) > 60 Random Glucose 82 Calcium 8.4 L Total Bilirubin 0.7 AST 23 ALT 25 Alkaline Phosphatase 92 Total Protein 6.6 Albumin 4.2 Globulin 2.4 Albumin/Globulin Ratio 1.7 Assessment & Plan (1) Hemoptysis Status: Acute Comment: Rule out malignancy. Fiberoptic bronchoscopy and biopsy. Continue antibiotics and bronchodilators. Culture and sensitivity (2) Pulmonary mass Status: Acute
[2018-08-27] MEDS: guaiFENesin 600 mg ER Tab PO SCH (18:50)
[2018-08-27] MEDS: Azithromycin 500 MG in Sodium Chloride 0.9% 250 ML IVPB SCH (19:56)
--- NOTE | 2018-08-27 22:42 | CP.PCM.HP ---
Present on Admission - Present on Admission Any Indicators Present on Admission: No Past Patient History - Past Medical History & Family History Past Medical History?: Yes - Past Social History Smoking Status: Heavy Smoker > 10 Cigarettes Daily - CARDIAC Hx Hypertension: No - PULMONARY Hx Pneumonia: Yes - NEUROLOGICAL Hx Seizures: No - HEENT Hx HEENT Problems: No - RENAL Hx Chronic Kidney Disease: No - ENDOCRINE/METABOLIC Hx Endocrine Disorders: No - HEMATOLOGICAL/ONCOLOGICAL Hx Human Immunodeficiency Virus (HIV): No - INTEGUMENTARY Hx Dermatological Problems: No - MUSCULOSKELETAL/RHEUMATOLOGICAL Hx Musculoskeletal Disorders: No Hx Falls: No - GASTROINTESTINAL Hx Gastrointestinal Disorders: No - GENITOURINARY/GYNECOLOGICAL Hx Sexually Transmitted Disorders: No - PSYCHIATRIC Hx Bipolar Disorder: Yes Hx Substance Use: No - SURGICAL HISTORY Hx Surgeries: No - ANESTHESIA Hx Anesthesia: No Meds Allergies/Adverse Reactions: Allergies Allergy/AdvReac Type Severity Reaction Status Date / Time No Known Allergies Allergy Verified 07/25/18 10:02 Results - Vital Signs Recent Vital Signs: Last Vital Signs Temp 97.9 F 08/27/18 16:23 Pulse 64 08/27/18 16:23 Resp 20 08/27/18 16:23 BP 117/69 08/27/18 16:23 Pulse Ox 97 08/27/18 16:23 - Labs Result Diagrams: 08/27/18 14:36 08/27/18 14:36 Labs: Laboratory Results - last 24 hr 08/27/18 08/27/18 14:36 14:36 WBC 7.4 RBC 4.55 Hgb 14.0 Hct 41.4 MCV 91.0 MCH 30.7 MCHC 33.7 RDW 15.2 H Plt Count 170 MPV 9.1 Neut % (Auto) 68.5 Lymph % (Auto) 24.2 Bath % (Auto) 6.3 Eos % (Auto) 0.4 Baso % (Auto) 0.6 Neut # (Auto) 5.1 Lymph # (Auto) 1.8 Bath # (Auto) 0.5 Eos # (Auto) 0.0 Baso # (Auto) 0.0 Sodium 135 Potassium 4.4 Chloride 101 Carbon Dioxide 27 Anion Gap 12 BUN 18 Creatinine 0.8 Est GFR ( Amer) > 60 Est GFR (Non-Af Amer) > 60 Random Glucose 82 Calcium 8.4 L Total Bilirubin 0.7 AST 23 ALT 25 Alkaline Phosphatase 92 Total Protein 6.6 Albumin 4.2 Globulin 2.4 Albumin/Globulin Ratio 1.7
[2018-08-28] MEDS: Albuterol-Ipratrop 3 mg / 0.5 (3 ml) UD INH SCH ×3 (02:22→13:15)
[2018-08-28] MEDS ORDERED: Enoxaparin 40 mg Syringe SC SCH (10:00)
[2018-08-28] MEDS: guaiFENesin 600 mg ER Tab PO SCH ×2 (10:08→18:10)
[2018-08-28] MEDS: Divalproex 500 mg DR Tab PO SCH ×3 (10:08→18:10)
[2018-08-28] MEDS: Azithromycin 500 MG in Sodium Chloride 0.9% 250 ML IVPB SCH ×2 (10:09→10:38)
--- NOTE | 2018-08-28 10:18 | HP ---
CHIEF COMPLAINT: Cough. HISTORY OF PRESENT ILLNESS: This is a 63-year-old white male with history of depression, and about 2-1/2 months ago, the patient was admitted to [facility] for hemoptysis. He was found to have pneumonia. At that time, the patient had sputum production, fever, chills, rigors. He was stabilized and discharged without outpatient cost report clerk, however, for all the 2-1/2 months, the patient is having cough. He had workup done on outpatient basis with no resolution and he is being admitted. The patient denies any history of polyuria, polydipsia, or polyphagia. He has increased cravings, but he is healthy. There is no history of skin rash, itchy eyes, itchy nose. There is no history of joint pain, hip pain. There is no history of tingling, numbness, paresthesia. There is no history of polyuria, polydipsia, or polyphagia. There is hemoptysis and cough, and he is denying any active wheezing, shortness of breath. ALLERGIES: UNKNOWN ALLERGIES. CURRENT MEDICATIONS: Depakote ER and Paxil. PHYSICAL EXAMINATION: GENERAL: An elderly male in no acute distress. He is coughing, he is wheezing. SKIN: No rashes. No bruises. No purpura. VITAL SIGNS: Blood pressure 117/69, pulse 64, respiratory rate 20, temperature 97.9. HEENT: Atraumatic, normocephalic. Negative pallor. Negative jaundice. Extraocular movements are intact. NECK: Supple. No JVD. No lymph nodes. CHEST: Chest wall bilateral symmetrical expansion. LUNGS: Bilateral scattered rales, no rhonchi. No heaves. No thrills. ABDOMEN: Soft, nontender. Bowel sounds are positive. EXTREMITIES: No clubbing, cyanosis, or edema. CENTRAL NERVOUS SYSTEM: Awake, alert, and oriented x3. ASSESSMENT: 1. Pneumonia, rule out lung mass. 2. Chronic obstructive pulmonary disease. 3. Depression. PLAN: The patient is for bronchoscopy. Monitor the patient. Adam Martin MD [facility] # [id number]
[2018-08-28] MEDS ORDERED: EPINEPHrine 1 mg/ml (1:1000) Inj ONE (13:23)
[2018-08-28] MEDS ORDERED: Lidocaine 2% MPF (5 ml) Inj ONE ×2 (13:23)
[2018-08-28] MEDS ORDERED: Midazolam 2 MG/2 ML VIAL ONE (13:38)
[2018-08-28] MEDS ORDERED: Propofol 10 mg/ml Inj (20 ML) ONE (13:38)
[2018-08-28] MEDS ORDERED: Lidocaine Hydrochloride 5 ML INJ ONE (14:07)
[2018-08-28] MEDS ORDERED: Neostigmine Methylsulfate 3mg/3ml Syringe IV ONE (14:30)
--- NOTE | 2018-08-28 15:51 | RAD ---
HISTORY: POST BRONCHOSCOPY W/ BX COMPARISON: Chest x-ray performed 08/27/18 TECHNIQUE: Chest, one view. FINDINGS: LUNGS: The lung apices are poorly visualized. Medial right upper lobe opacity may summation artifact due to tortuous vasculature and osseous structures magnified by patient obliquity. Otherwise grossly clear. PLEURA: No significant pleural effusion identified. No definite pneumothorax . CARDIOVASCULAR: Heart size appears top-normal. Atherosclerotic calcifications present. OSSEOUS STRUCTURES: Degenerative changes. VISUALIZED UPPER ABDOMEN: Unremarkable. OTHER FINDINGS: None. IMPRESSION: The lung apices are poorly visualized. Medial right upper lobe opacity may summation artifact due to tortuous vasculature and osseous structures magnified by patient obliquity. Otherwise grossly clear.
--- NOTE | 2018-08-28 16:29 | RAD ---
Date of service: 08/28/2018 PROCEDURE: Intraoperative Fluoroscopy. HISTORY: RT LUNG MASS FINDINGS: Fluoroscopic assistance was provided for bronchoscopy. Please refer to the operative report from DANYA Davila. Total fluoroscopic time (continuous mode) utilized during the procedure 29.8 seconds. Dose report: DLP [id number] (mGy/m2)
[2018-08-28 16:41] VITALS: BP 116/65; PULSE 65; TEMP 98; O2SAT 96
--- NOTE | 2018-08-28 18:37 | CP.PCM.PN ---
Subjective - Date & Time of Evaluation Date of Evaluation: 08/28/18 Time of Evaluation: 17:00 - Subjective Subjective: Patient seen and examined Status post bronchoscopy, biopsy, brushing and bronchoalveolar lavage Right mainstem bronchus endobronchial lesion seen very vascular and multiple biopsies done Biopsies taken from superior segment of right lower lobe Small amount of bleeding noted Continue antibiotics Objective - Vital Signs/Intake and Output Vital Signs (last 24 hours): Temp Pulse Resp BP Pulse Ox 98 F 65 20 116/65 96 08/28/18 16:41 08/28/18 16:41 08/28/18 16:41 08/28/18 16:41 08/28/18 16:41 Intake and Output: 08/28/18 08/28/18 06:59 18:59 Intake Total 830 1270 Balance 830 1270 - Medications Medications: Current Medications Acetaminophen (Tylenol 325mg Tab) 650 mg PO Q6 PRN PRN Reason: Fever >100.4 F Albuterol/Ipratropium (Duoneb 3 Mg/0.5 Mg (3 Ml) Ud) 3 ml INH RQ6 [facility] Last Admin: 08/28/18 13:15 Dose: Not Given Divalproex Sodium (Depakote Dr) 500 mg PO TID [facility] Last Admin: 08/28/18 18:10 Dose: 500 mg Enoxaparin Sodium (Lovenox) 40 mg SC DAILY [facility] Last Admin: 08/28/18 10:08 Dose: Not Given Guaifenesin (Mucinex La) 600 mg PO BID [facility] Last Admin: 08/28/18 18:10 Dose: 600 mg Ceftriaxone Sodium 1 gm/ (Sodium Chloride) 100 mls @ 100 mls/hr IVPB DAILY [facility]; Protocol Last Admin: 08/28/18 10:35 Dose: 100 mls/hr Azithromycin 500 mg/ Sodium (Chloride) 250 mls @ 250 mls/hr IVPB DAILY [facility]; Protocol Last Admin: 08/28/18 10:38 Dose: 250 mls/hr Nicotine (Nicoderm Cq) 1 patch TD DAILY [facility] Last Admin: 08/28/18 10:08 Dose: Not Given Paroxetine HCl (Paxil) 10 mg PO DAILY [facility] Last Admin: 08/28/18 10:08 Dose: Not Given - Labs Labs: 08/27/18 14:36 08/27/18 14:36 Assessment and Plan (1) Hemoptysis Status: Acute (2) Pulmonary mass Status: Acute
--- NOTE | 2018-08-28 22:29 | CP.PCM.DIS ---
Provider - Provider Date of Admission: 08/27/18 14:36 Attending physician: Adam Martin MD Time Spent in preparation of Discharge (in minutes): 30 Hospital Course - Lab Results Lab Results: Micro Results 08/27/18 14:49 Blood Blood Culture - Preliminary NO GROWTH AFTER 24 HOURS 08/27/18 14:49 Blood Blood Culture - Preliminary NO GROWTH AFTER 24 HOURS Most Recent Lab Values WBC 7.4 K/uL (4.8-10.8) 08/27/18 14:36 RBC 4.55 Mil/uL (4.40-5.90) 08/27/18 14:36 Hgb 14.0 g/dL (12.0-18.0) 08/27/18 14:36 Hct 41.4 % (35.0-51.0) 08/27/18 14:36 MCV 91.0 fL (80.0-94.0) 08/27/18 14:36 MCH 30.7 pg (27.0-31.0) 08/27/18 14:36 MCHC 33.7 g/dL (33.0-37.0) 08/27/18 14:36 RDW 15.2 % (11.5-14.5) H 08/27/18 14:36 Plt Count 170 K/uL (130-400) 08/27/18 14:36 MPV 9.1 fL (7.2-11.7) 08/27/18 14:36 Neut % (Auto) 68.5 % (50.0-75.0) 08/27/18 14:36 Lymph % (Auto) 24.2 % (20.0-40.0) 08/27/18 14:36 Craig % (Auto) 6.3 % (0.0-10.0) 08/27/18 14:36 Eos % (Auto) 0.4 % (0.0-4.0) 08/27/18 14:36 Baso % (Auto) 0.6 % (0.0-2.0) 08/27/18 14:36 Neut # (Auto) 5.1 K/uL (1.8-7.0) 08/27/18 14:36 Lymph # (Auto) 1.8 K/uL (1.0-4.3) 08/27/18 14:36 Craig # (Auto) 0.5 K/uL (0.0-0.8) 08/27/18 14:36 Eos # (Auto) 0.0 K/uL (0.0-0.7) 08/27/18 14:36 Baso # (Auto) 0.0 K/uL (0.0-0.2) 08/27/18 14:36 Sodium 135 mmol/L (132-148) 08/27/18 14:36 Potassium 4.4 mmol/L (3.6-5.2) 08/27/18 14:36 Chloride 101 mmol/L (98-107) 08/27/18 14:36 Carbon Dioxide 27 mmol/L (22-30) 08/27/18 14:36 Anion Gap 12 (10-20) 08/27/18 14:36 BUN 18 mg/dL (9-20) 08/27/18 14:36 Creatinine 0.8 mg/dL (0.8-1.5) 08/27/18 14:36 Est GFR ( Amer) > 60 08/27/18 14:36 Est GFR (Non-Af Amer) > 60 08/27/18 14:36 Random Glucose 82 mg/dL (75-110) 08/27/18 14:36 Calcium 8.4 mg/dl (8.6-10.4) L 08/27/18 14:36 Total Bilirubin 0.7 mg/dL (0.2-1.3) 08/27/18 14:36 AST 23 U/L (17-59) 08/27/18 14:36 ALT 25 U/L (21-72) 08/27/18 14:36 Alkaline Phosphatase 92 U/L (38-126) 08/27/18 14:36 Total Protein 6.6 g/dL (6.3-8.3) 08/27/18 14:36 Albumin 4.2 g/dL (3.5-5.0) 08/27/18 14:36 Globulin 2.4 gm/dL (2.2-3.9) 08/27/18 14:36 Albumin/Globulin Ratio 1.7 (1.0-2.1) 08/27/18 14:36 Discharge Exam - Head Exam Head Exam: ATRAUMATIC, NORMOCEPHALIC Discharge Plan - Follow Up Plan Condition: STABLE Disposition: HOME/ ROUTINE Instructions: Pneumonia, Adult (DC) Referrals: Sathish Nunes MD [Staff Provider] -
--- NOTE | 2018-08-29 08:40 | PROCN ---
DATE: 08/28/2018 PROCEDURE: Fiberoptic bronchoscopy with biopsy, brushing, and bronchoalveolar lavage. INDICATION: Right lung mass and also the patient complaining of cough. DESCRIPTION OF PROCEDURE: After obtaining consent, explaining risks and benefits, the procedure was done. After the patient was intubated by the anesthesiologist, the bronchoscope was passed through the endotracheal tube into the trachea. The main idalmis was sharp. First, the bronchoscope was passed onto the left side which appeared normal. Later, the bronchoscope was pulled back and passed on the right side, the right main and the bronchial lesion seen which started bleeding and multiple biopsies were taken. Also, multiple biopsies and brushing was taken from the superior segment of the right lower lobe. No complication noted. The patient tolerated the procedure well. Sathish Nunes MD
--- NOTE | 2018-08-30 06:15 | DS ---
DISCHARGE DIAGNOSES: Pneumonia, depression. HOSPITAL COURSE: This is a 63-year-old male with history of pneumonia, came in because of residual cough, found to have an infiltrate, and the patient was admitted, started on antibiotics, nebulizer, and he underwent CT of the chest which showed an infiltrate and he underwent bronchoscopy. Subsequently, the patient improved. He felt better. Bronchoscopy did not reveal any mass. The patient's condition is stable upon discharge. He will be followed up as outpatient. The patient was discharged. Adam Martin MD
== END 2018-08-28 20:10 | disposition home or self-care (01) ==
LOC: C.ER 12:47 → INTOOBSV 14:36 → C.9E 14:36 → C.3T 15:01
PROVIDERS: ADMIT Internal Medicine; ATTEND Internal Medicine
PROC: 0BD68ZX Extraction of Right Lower Lobe Bronchus, Via Natural or Artificial Opening Endoscopic, Diagnostic (ICD-10-PCS; 2018-08-28)
PROC: 0B9F8ZX Drainage of Right Lower Lung Lobe, Via Natural or Artificial Opening Endoscopic, Diagnostic (ICD-10-PCS; principal; 2018-08-28 14:00)
DX: J18.9 Pneumonia, unspecified organism (principal); J44.0 Chronic obstructive pulmonary disease with (acute) lower respiratory infection; R04.2 Hemoptysis; F31.9 Bipolar disorder, unspecified; F17.210 Nicotine dependence, cigarettes, uncomplicated; Z87.01 Personal history of pneumonia (recurrent)
CPT/HCPCS: 31624; 31625; 71045; 71046; 76000; 80053; 85025; 87015; 87040; 87070; 87101; 87116; 87206; 88104; 88305; 96365; 96366; 96367; 99283; G0378; J0171; J0456; J0696; J7050